=== PATIENT | male | born 1950 | race Caucasian/White ===

== ENCOUNTER 2018-11-26 09:19 | Outpatient (CLI) | payer OTHER, SELFPAY ==
--- NOTE | 2018-11-26 09:14 | DI.RAD_ITS ---
SYMPTOMS/DIAGNOSIS: RIGHT MEDIAL THIGH PAIN S/P TOTAL HIP ARTHROPLASTY RIGHT FEMUR AND PELVIS: There are no priors for comparison. There is a right total hip replacement. No evidence of hardware failure is seen. The bones are intact and normally mineralized. Vascular calcifications are seen in the soft tissues. Mild degenerative changes are seen in the left hip. IMPRESSION: Stable right THR. No acute abnormality.
== END 2018-11-26 09:39 ==
PROVIDERS: PCP Internal Medicine; Referring Provider Internal Medicine; Visit Provider Student in an Organized Health Care Education/Training Program
DX: M25.551 Pain in right hip (principal); M79.651 Pain in right thigh; Z96.641 Presence of right artificial hip joint; G58.8 Other specified mononeuropathies; G97.82 Other postprocedural complications and disorders of nervous system
CPT/HCPCS: 73552; 99203; 72170